=== PATIENT | female | born 1995 | race Caucasian/White ===

== ENCOUNTER 2019-08-15 18:53 | Emergency (ER) | payer MEDICAID ==
[~2019-08-15] VITALS: Ht 160 cm; Wt 99.8 kg
[2019-08-15 18:59] VITALS: BP 123/68
[2019-08-15 19:13] VITALS: BP 123/68
== END 2019-08-15 19:13 | disposition home or self-care (01) ==
LOC: MED 18:53
DX: K08.89 Other specified disorders of teeth and supporting structures (principal); Z90.49 Acquired absence of other specified parts of digestive tract
CPT/HCPCS: 99283

== ENCOUNTER 2019-09-23 09:33 | Emergency (ER) | payer MEDICAID ==
[~2019-09-23] VITALS: Ht 160 cm; Wt 100.2 kg
[2019-09-23 09:52] VITALS: BP 130/75
--- NOTE | 2019-09-23 09:59 | NUR ---
Pt taken to bed 4.
--- NOTE | 2019-09-23 10:08 | NUR ---
PATIENT PRESENTS TO ED WITH TOOTHACHE X 6 WEEKS. + MILD SWELLING, LEFT CHEEK, -DISCHARGE, +H/A, -N/V, -FEVER. PT STATES THAT HER TOOTH HAS A CAVITY BUT HER DENTIST IS OUT OF TOWN UNTIL OCT 02. SHE HAS BEEN APPLYING ICE AND TAKING IBUPROFEN AND ANTIBIOTICS WHICH HER DENTIST PRESCRIBED. SKIN IS PINK/WARM/DRY; AAOX4 WITH EVEN AND STEADY GAIT; LUNGS CLEAR BL; HR EVEN AND REGULAR; PT DENIES ANY FEVER, CP, SOB, OR COUGH AT THIS TIME; PATIENT STATES PAIN OF 10/10 AT THIS TIME; VSS; PATIENT POSITIONED FOR COMFORT; HOB ELEVATED; BEDRAILS UP X2; BED DOWN. ER MD MADE AWARE OF PT STATUS.
--- NOTE | 2019-09-23 10:36 | NUR ---
ER MD SEEING PT AT THIS TIME
[2019-09-23] MEDS ORDERED: LIDOCAINE VISCOUS 2% 20 ML UDC PO ONE (11:05)
[2019-09-23 11:21] VITALS: BP 129/65
--- NOTE | 2019-09-23 11:21 | NUR ---
Patient discharged with v/s stable. Written and verbal after care instructions given and explained. Patient alert, oriented and verbalized understanding of instructions. Ambulatory with steady gait. All questions addressed prior to discharge. ID band removed. Patient advised to follow up with PMD. Rx of FIORICET given. Patient educated on indication of medication including possible reaction and side effects. Opportunity to ask questions provided and answered.
== END 2019-09-23 11:21 | disposition home or self-care (01) ==
LOC: MED 09:33
DX: K08.89 Other specified disorders of teeth and supporting structures (principal); G89.29 Other chronic pain
CPT/HCPCS: 99283